=== PATIENT | male | born 1950 | race Caucasian/White ===

== ENCOUNTER 2017-09-27 17:55 | Emergency (ER) | payer OTHER ==
[~2017-09-27] VITALS: Ht 167.6 cm; Wt 89.2 kg
[2017-09-27 17:58] VITALS: BP 171/95
[2017-09-27 18:31] LABS: HEMATOCRIT 42.5 % (38.0-50.0); MCH 34.6 PG (29.0-34.0); MCHC 33.9 G/DL (30.0-36.0); MCV 102.2 FL (86-99); MEAN PLAT.VOLUME 10.2 uM^3 (9.0-12.4); PLATELET COUNT 175 K/uL (156-360); RBC DIS.WIDTH-SD 45.6 % (39-53); RED BLOOD COUNT 4.16 M/uL (4.00-5.50); WHITE BLOOD COUNT 12.2 K/uL (4.1-10.2)
[2017-09-27 18:41] LABS: CHLORIDE 103 mEq/L (99-109); POTASSIUM 3.8 mEq/L (3.7-5.4); SODIUM 138 mEq/L (136-147)
[2017-09-27 18:43] LABS: GLUCOSE 95 mg/dL (70-99)
[2017-09-27 18:43] LABS: ERTH.SED.RATE 14 MM/HR (0-20)
[2017-09-27 18:44] LABS: ANION GAP 11 MEQ/L (2-14)
[2017-09-27 18:47] LABS: GFR ESTIMATE (CALCULATED) > 59 mL/min/
[2017-09-27 18:48] LABS: UREA NITROGEN (BUN) 20 mg/dL (9-23)
[2017-09-27] MEDS ORDERED: PERCOCET 5/31 TABLET PO (19:03)
== END 2017-09-27 19:19 | disposition home or self-care (01) ==
LOC: EME 17:55
PROVIDERS: Nurse Practitioner Family
DX: M19.032 Primary osteoarthritis, left wrist (principal); M25.532 Pain in left wrist; R20.0 Anesthesia of skin; F17.200 Nicotine dependence, unspecified, uncomplicated
CPT/HCPCS: 73110; 80048; 85027; 85651; 99281; 99284; J1100